=== PATIENT | female | born 1965 | race Native Hawaiian/Other Pacific Islander ===

== ENCOUNTER 2018-05-02 19:50 | Emergency (ER) | payer OTHER ==
[~2018-05-02] VITALS: Ht 170.2 cm; Wt 57.6 kg
[~2018-05-02 19:50] MED LIST: DEMEROL50 MG PO; PEPCID40 MG PO; PROM25TA52 PO; SUCR1TAB35 PO; TYLENOL325 MG PO
[2018-05-02 19:55] VITALS: TEMP 98.3
[2018-05-02 21:45] VITALS: BP 148/70
== END 2018-05-02 21:52 | disposition home or self-care (01) ==
LOC: ED 19:50
DX: S82.831A Other fracture of upper and lower end of right fibula, initial encounter for closed fracture (principal)
CPT/HCPCS: 99283; L4350

== ENCOUNTER 2022-09-08 17:56 | Emergency (ER) | payer OTHER ==
[~2022-09-08] VITALS: Ht 170.2 cm; Wt 72.6 kg
[2022-09-08 22:50] VITALS: BP 115/60; TEMP 97.3
== END 2022-09-08 22:50 | disposition home or self-care (01) ==
LOC: ED 17:56
DX: M79.18 Myalgia, other site (principal); S22.060A Wedge compression fracture of T7-T8 vertebra, initial encounter for closed fracture; S22.070A Wedge compression fracture of T9-T10 vertebra, initial encounter for closed fracture; S22.080A Wedge compression fracture of T11-T12 vertebra, initial encounter for closed fracture; W17.89XA Other fall from one level to another, initial encounter; Y92.89 Other specified places as the place of occurrence of the external cause
CPT/HCPCS: 96372; 99283; J2270; J2405

== ENCOUNTER 2023-08-01 05:17 | Emergency (ER) | payer OTHER ==
[~2023-08-01] VITALS: Ht 170.2 cm; Wt 72.6 kg
[~2023-08-01 05:17] MED LIST changes: +CEPH500C20 PO; +CLIN300C PO
[2023-08-01 06:35] VITALS: BP 130/49; TEMP 97.8
== END 2023-08-01 06:35 | disposition home or self-care (01) ==
LOC: ED 05:17
DX: M54.59 Other low back pain (principal); M54.16 Radiculopathy, lumbar region
CPT/HCPCS: 99282

== ENCOUNTER 2023-08-01 08:10 | Emergency (ER) | payer OTHER ==
[~2023-08-01] VITALS: Ht 170.2 cm; Wt 63.5 kg
[2023-08-01 08:15] VITALS: BP 160/73; TEMP 98.3
== END 2023-08-01 08:30 | disposition home or self-care (01) ==
LOC: ED 08:10
DX: R42 Dizziness and giddiness (principal); L03.116 Cellulitis of left lower limb; I10 Essential (primary) hypertension; J44.9 Chronic obstructive pulmonary disease, unspecified; G89.29 Other chronic pain; F17.210 Nicotine dependence, cigarettes, uncomplicated
CPT/HCPCS: 99281

== ENCOUNTER 2023-08-03 19:20 | Emergency (ER) | payer OTHER ==
[~2023-08-03] VITALS: Ht 167.6 cm; Wt 63.5 kg
[2023-08-03 19:30] VITALS: TEMP 98.4
[2023-08-03 21:35] VITALS: BP 140/80
== END 2023-08-03 21:35 | disposition home or self-care (01) ==
LOC: ED 19:20
DX: M54.89 Other dorsalgia (principal)
CPT/HCPCS: 96372; 99283; J1100; J1885; J2405